=== PATIENT | male | born 1995 | race Caucasian/White ===

== ENCOUNTER 2023-05-22 13:11 | Outpatient (CLI) | payer OTHER, SELFPAY | END 2023-05-22 13:12 | disposition home or self-care (01) | LOC: LKVREF 13:13 | PROVIDERS: PCP Nurse Practitioner Family; Visit Provider Nurse Practitioner Family | DX: R53.83 Other fatigue (principal); F10.10 Alcohol abuse, uncomplicated; Z13.228 Encounter for screening for other metabolic disorders | CPT/HCPCS: 80053 ==